=== PATIENT | male | born 1980 ===

== ENCOUNTER → 2018-09-03 | Outpatient (CLI) | payer OTHER ==
--- NOTE | 2018-09-03 16:57 | Diagnostic Imaging Report ---
Indication: Hypothyroidism Technique: Grayscale and duplex images of the thyroid Comparison: none Findings: Right thyroid lobe measures 3.8 cm length x 1.4 cm AP. Left thyroid lobe measures 3.9 cm length x 1.1 cm AP. Both thyroid lobes demonstrate slightly heterogeneous echogenicity. Very questionable isoechoic wider than tall 15 x 10 mm nodule with ill-defined margins is equivocally demonstrated in the posterior right thyroid lobe. No calcifications. If real, this is a TI RADS 3 lesion. Very questionable lesion with identical characteristics measuring 13 mm also seen in the posterior right thyroid lobe, likewise TI RADS 3. One or 2 subcentimeter lesions with identical characteristics are seen in the right thyroid lobe, both TI RADS 3. Questionable lesion in the left thyroid interpolar region is wider than tall, otherwise similar. This is a TI RADS 4 lesion, measures 10 mm long axis dimension Impression: Slightly heterogeneous thyroid. Very questionable nodules bilaterally. Based on their TI RADS category and size, short interval six-month follow-up sonography is recommended
== END | disposition home or self-care (01) ==
LOC: ULS 09:15
DX: E03.9 Hypothyroidism, unspecified (principal)
CPT/HCPCS: 76536